=== PATIENT | female | born 1990 | race Caucasian/White ===

== ENCOUNTER 2019-08-13 10:12 | Day surgery (SDC) | payer OTHER ==
[2019-08-12 14:44] VITALS: BMI 25.0
[~2019-08-13 10:12] MED LIST: Dexamethasone 20 MG/5 ML VIAL ONE; EPHEDRINE 25 MG/5 ML SYRINGE ONE; Glycopyrrolate 0.2 MG/ML 5 ML SYRINGE ONE; Lidocaine 1% PF 5 ML VIAL ONE; Ondansetron PF 4 MG/2 ML Vial ONE; PROPOFOL 200 MG/20 ML VIAL ONE; Rocuronium Bromide 10 MG/ML (10ML VIAL) ONE
[2019-08-13] MEDS ORDERED: Bacitracin Zinc Ointment 30 gm TUBE ONE (10:25)
[2019-08-13] MEDS ORDERED: Lidocaine 1% w/Epinephrine 1:100K 20 ML VIAL ONE (10:25)
[2019-08-13] MEDS ORDERED: AFRIN NASAL MIST 15 ML BOT ONE ×2 (10:25→10:26)
[2019-08-13] MEDS ORDERED: Fentanyl 100 MCG/2 ML VIAL ONE (10:36)
[2019-08-13] MEDS ORDERED: Lidocaine 4% Topical Sol 50 ML BOT ONE (10:42)
[2019-08-13] MEDS ORDERED: Propofol 1,000 MG/100 ML VIAL IV ONE (10:45)
[2019-08-13 10:50] LABS: BHCG - Serum Negative (NEGATIVE); Pregs Control Background? CLEAR/WHITE (CLR/WHITE); Pregs Control Bar Appear? YES (CONTROL BAR)
[2019-08-13] MEDS ORDERED: Midazolam HCl 2 mg/2 ml Vial ONE (10:59)
[2019-08-13] MEDS ORDERED: Propofol 500 MG/50 ML VIAL ONE (13:36)
[2019-08-13] MEDS ORDERED: HYDROcodone/Acetaminophen 5/325 mg Tablet ONE (16:59)
--- NOTE | 2019-08-14 09:06 | OP ---
DATE OF PROCEDURE: 08/13/2019 PREOPERATIVE DIAGNOSES: Anterior caudal septal deviation and deformity of the nose and nasal valve and deviated septum. POSTOPERATIVE DIAGNOSES: Anterior caudal septal deviation and deformity of the nose and nasal valve and deviated septum. PROCEDURES PERFORMED: Functional rhinoplasty, nasal valve reconstruction, septoplasty, and inferior turbinate reduction, bilateral for all procedures. PERMIT: Procedures, benefits, risks including those of bleeding, infection, injury from anesthesia, allergic reaction, and scarring necessitating revision or repair and alternatives were reviewed with the patient and family, who expressed understanding of the information. The consent form was signed and witnessed and a paper copy of the consent form is available for review in the paper chart. INDICATIONS: This is a female patient, presenting to clinic with nasal deformity and anterior caudal septal deflection causing nasal congestion as well as nasal valve collapse and complaining of difficulty breathing through the nose. ASSISTANTS: None. FINDINGS: Anterior caudal septal deflection, nasal valve collapse, and deformity of the nasal aperture and turbinate hypertrophy. DESCRIPTION OF OPERATION: The patient was brought to the operating room and laid supine on the operating room table. General endotracheal anesthesia was administered. The septum was infiltrated bilaterally with 1% lidocaine with 1:100,000 epinephrine and 6 cottonoids soaked with Afrin were placed bilaterally in the nasal cavities, 3 on each side. The patient was prepped and draped in the usual fashion. The nose was evaluated endoscopically and the patient was seen to have very severe and significant septal deviation as well as deviation of the columella and the lower lateral cartilage. At this point, a hemitransfixion incision carrying down the incision down to the nasal floor of the nasal vestibule was made on the left side and elevation of the mucoperichondrial flaps was made on the patient's left side first and then on the patient's right side and the cartilage of the nasal septum was exposed down to the anterior nasal spine bilaterally and a mucoperichondrial flap was elevated from the nasal septum down onto the floor of the nasal cavity as well as elevating tissue from the maxillary crest. Care was taken to avoid destabilizing the caudal septum and roughly 2 cm from the anterior border of the caudal septum and cartilaginous septum, an incision was made on the quadrangular cartilage and the incision was made from the superior aspect taking care to leave at least a 2 cm dorsal strut intact down to the nasal floor. A swivel knife was used to harvest the cartilage from the nasal septum and was set in some saline and set aside for later reconstruction. The anterior caudal septum was evaluated and found to be severely deviated. The cartilaginous portion of the L strut anteriorly was evaluated and was seen to be deviated to the left side. At the aspect of the most deviation, the caudal nasal strut was transected using scissors to cut at the most deviated aspect. Then, the cartilage was then moved over to the right aspect and sutured in place to correct the deviation to the left. The cartilaginous harvested piece from the septum was then placed on the right side and then 4-0 PDS sutures were then used to suture the cartilage together making a columellar strut. Next, the lower lateral cartilage that was found to be deviating to the left side was sutured to the lower lateral cartilage of the right side just posterior to the external columella in order to bring those cartilaginous deviations to the midline and to be approximated in the center. After this was performed, the hemitransfixion was placed in close proximity to the other incision and the nose was evaluated and found to be in a central position. At this point, the hemitransfixion incision was closed with 5-0 chromic suture and the mucoperichondrial flaps were reapproximated using a 4-0 chromic suture in a mattress fashion and next, attention was turned to the bilateral inferior turbinate reductions, which were performed. A stab incision was made along the anterior and inferior aspect of the turbinate head followed by elevation with the oscillating debrider and that was placed in the pocket to remove the erectile tissue from the inside of the turbinates on both sides. After this was performed, both the inferior turbinates were lateralized using a Carlson elevator and any bleeding was controlled with suction cautery. At this point, attention was turned to the nasal valve reconstruction. Both nasal valves were found to have some collapse and the area of collapse was marked with a marking pen and the left was evaluated and an implant was inserted on the medial aspect of the lateral wall of the nasal valve and placed over the left nasal bone and then the insertion device was removed. The left lateral nasal wall was found to be stented open and no longer was there collapse observed. The right nasal valve was addressed in a like manner, where an insert was implanted on the medial aspect of the right nasal wall under the cartilaginous component and then, over the right nasal bone and the insertion device was removed. There was no bleeding seen and the right nasal valve was stented open, and there was no longer a collapse. The nose was then irrigated. The nasal cavity was irrigated bilaterally and suction was used to remove any debris or any remaining blood from inside the nasal cavities and at this point, the patient was turned back over to Anesthesia for emergence. Job ID: [id number]
== END 2019-08-13 17:30 | disposition home or self-care (01) ==
LOC: SDC 10:12
PROVIDERS: ATTEND Student in an Organized Health Care Education/Training Program
PROC: 09U Ear, Nose, Sinus, Supplement (ICD-10-PCS; principal; 2019-08-13)
PROC: 09BL8ZZ Excision of Nasal Turbinate, Via Natural or Artificial Opening Endoscopic (ICD-10-PCS; principal; 2019-08-13)
DX: J34.2 Deviated nasal septum (principal); J34.3 Hypertrophy of nasal turbinates; J34.89 Other specified disorders of nose and nasal sinuses; J34.0 Abscess, furuncle and carbuncle of nose
CPT/HCPCS: 36415; 84703; 85014; J1100; J2001; J2250; J2405; J2704; J3010